=== PATIENT | female | born 1950 | race Caucasian/White ===

== ENCOUNTER → 2016-12-21 | Outpatient (CLI) | payer BC ==
[~2016-12-21] MED LIST: ASPI81TA28 PO; MULT-506 PO; OMEG10007 PO; PLANTAB3 PO
--- NOTE | 2016-12-24 13:47 | MAMMOGRAPHY REPORT ---
BILATERAL DIGITAL SCREENING MAMMOGRAM WITH CAD: 12/21/2016 CLINICAL HISTORY: Routine screening. Patient has no complaints. TECHNIQUE: Current study was also evaluated with a Computer Aided Detection (CAD) system. Bilatera l CC and MLO views were obtained. COMPARISON: Comparison is made to exams dated: 12/21/2015 mammogram, 12/18/2013 mammogram, 12/20/2014 ma mmogram, 12/16/2012 mammogram, 12/11/2011 mammogram, and 12/06/2010 mammogram - [facility] enter. BREAST COMPOSITION: The tissue of both breasts is heterogeneously dense, which may obscure small ma sses. FINDINGS: No suspicious masses, calcifications, or areas of architectural distortion are noted in e ither breast. There has been no significant interval change compared to prior exams. IMPRESSION: ACR BI-RADS CATEGORY 1: NEGATIVE There is no mammographic evidence of malignancy. A 1 year screening mammogram is recommended. The p atient will receive written notification of the results. Approximately 10% of breast cancers are not detected with mammography. A negative mammographic repor t should not delay biopsy if a clinically suggestive mass is present. Stormy Felder M.D. ah/:12/21/2016 12:13:40 Rn Or Lvn: Danielle FIGUEROA(Krystal)(M), [facility] letter sent: Normal 1/2 BI-RADS Code: ACR BI-RADS Category 1: Negative
== END | disposition home or self-care (01) ==
LOC: C.MAMM 09:51
PROVIDERS: ATTEND Obstetrics & Gynecology
DX: Z12.31 Encounter for screening mammogram for malignant neoplasm of breast (principal)

== ENCOUNTER → 2017-12-23 | Outpatient (CLI) | payer BC ==
--- NOTE | 2017-12-23 15:41 | MAMMOGRAPHY REPORT ---
BILATERAL DIGITAL SCREENING MAMMOGRAM TOMOSYNTHESIS WITH CAD: 12/23/2017 CLINICAL HISTORY: Routine screening. Patient has no complaints. TECHNIQUE: Breast tomosynthesis in addition to standard 2D mammography was performed. Current study was also evaluated with a Computer Aided Detection (CAD) system. COMPARISON: Comparison is made to exams dated: 12/21/2016 mammogram, 12/21/2015 mammogram, 12/20/2014 mamm ogram, 12/18/2013 mammogram, 12/16/2012 mammogram, and 12/25/2011 mammogram - [facility] BREAST COMPOSITION: The tissue of both breasts is heterogeneously dense, which may obscure small mas ses. FINDINGS: No suspicious mass, architectural distortion or cluster of microcalcifications is seen. T here are stable intramammary lymph nodes in each upper outer quadrant. IMPRESSION: ACR BI-RADS CATEGORY 1: NEGATIVE There is no mammographic evidence of malignancy. A 1 year screening mammogram is recommended. The pa tient will receive written notification of the results. Approximately 10% of breast cancers are not detected with mammography. A negative mammographic report should not delay biopsy if a clinically suggestive mass is present. Candie James M.D. ay/:12/23/2017 13:14:04 Horse Breaker: Maria Esther Paulino, [facility] letter sent: Normal 1/2 BI-RADS Code: ACR BI-RADS Category 1: Negative
== END | disposition home or self-care (01) ==
LOC: C.MAMM 11:25
PROVIDERS: ATTEND Obstetrics & Gynecology
DX: Z12.31 Encounter for screening mammogram for malignant neoplasm of breast (principal)

== ENCOUNTER → 2018-05-19 | Outpatient (CLI) | payer BC ==
[~2018-05-19] MED LIST changes: +NF34 TOP; -PLANTAB3 PO; +PRMVC PV
[2018-05-19 13:33] LABS: ALBUMIN 3.7 gm/dl (3.4-5.0); ALKALINE PHOSPHATASE 42 U/L (45-117); ALT/SGPT 26 U/L (12-78); AST/SGOT 16 U/L (15-37); BLOOD UREA NITROGEN 25 mg/dl (7-18); CARBON DIOXIDE 28 mmol/L (21-32); CHOLESTEROL 236 mg/dl (0-200); CREATININE 0.76 mg/dl (0.60-1.20); GLUCOSE 105 mg/dl (70-99); LDL CHOLESTEROL CALCULATED 153 mg/dl; SODIUM 138 mmol/L (136-145); TOTAL PROTEIN 6.8 gm/dl (6.4-8.2)
== END | disposition home or self-care (01) ==
LOC: C.LABPVFM 09:43
PROVIDERS: ATTEND Family Medicine
DX: N95.2 Postmenopausal atrophic vaginitis (principal); E78.5 Hyperlipidemia, unspecified

== ENCOUNTER 2019-03-09 23:30 | Observation (INO) ==
[2019-03-10 00:02] LABS: Basophils # (auto) 0.04 K/uL (0-0.2); Basophils % (auto) 0.6 %; Eosinophils # (auto) 0.36 K/uL (0-0.5); Hematocrit (blood only) 41.9 % (37-47); Hemoglobin 15.4 g/dL (12.0-16.0); Immature Granulocytes # (auto) 0.02 K/uL (0.00-0.02); Immature Granulocytes % (auto) 0.3 %; Lymphocytes % (auto) 38.8 %; Mean Corpuscular Hgb Conc 36.8 g/dL (32-36); Mean Corpuscular Volume 87.1 fL (80-100); Mean Platelet Volume 10.7 fL (7.4-10.4); Monocytes # (auto) 0.65 K/uL (0.11-0.59); Neutrophils # (auto) 3.35 K/uL (1.4-6.5); Neutrophils % (auto) 46.3 %; Platelet Count 198 K/uL (130-400); RDW Standard Deviation 41.7 fL (36.4-46.3); Red Blood Count 4.81 M/uL (4.2-5.4); White Blood Count 7.22 K/uL (4.8-10.8)
[2019-03-10 00:22] LABS: D Dimer 770 ug/L FEU (0-500)
[2019-03-10 00:23] LABS: Alanine Aminotransferase 30 U/L (12-78); Albumin Level 3.9 gm/dl (3.4-5.0); Aspartate Aminotransferase 19 U/L (15-37); BUN Creatinine Ratio 24.6 (10-20); Blood Urea Nitrogen 18 mg/dl (7-18); Calcium 10.1 mg/dl (8.5-10.1); Carbon Dioxide 28 mmol/L (21-32); Chloride 109 mmol/L (98-107); Est GFR (African American) 95.8; Est GFR (Non-African American) 82.7; Glucose 107 mg/dl (70-99); Magnesium 2.3 mg/dl (1.8-2.4); Potassium 3.9 mmol/L (3.5-5.1); Sodium 142 mmol/L (136-145)
[2019-03-10] MEDS ORDERED: METOPROLOL TARTRATE 1 MG/ML VIAL IV STA (00:25)
[2019-03-10] MEDS ORDERED: SODIUM CHLORIDE 0.9% 500 ML IV ONE (00:25)
[2019-03-10 00:33] LABS: Albumin Globulin Ratio 1.1 (0.9-2); Alkaline Phosphatase 61 U/L (45-117); Bilirubin,Total 0.4 mg/dl (0.2-1); Globulin 3.6 gm/dl (2.5-4.0); NT Pro B Type Natriuretic Pept 159 pg/ml (0-900); Total Protein 7.5 gm/dl (6.4-8.2); Troponin I < 0.015 ng/ml (0-0.045)
[2019-03-10 00:57] LABS: Appearance Urine Clear (Clear); Bilirubin Urine Negative (Negative); Blood Urine Negative (Negative); Color Urine Yellow; Glucose Urine UA Negative (Negative); Ketones Urine Negative (Negative); Leukocyte Esterase Urine Negative (Negative); Nitrite Urine Negative (Negative); Protein Urine Negative (Negative); Specific Gravity Urine 1.011 (1.000-1.030); Urobilinogen Urine Negative (Negative)
[2019-03-10] MEDS ORDERED: OPTIRAY 320 125ml IV PRN (01:13)
[2019-03-10 01:38] LABS: Lyme Ab IgG w/WB Rflx Negative (Negative); Lyme Ab IgM w/WB Rflx Equivocal (Negative)
--- NOTE | 2019-03-10 02:27 | History & Physical Report ---
Date of Service March 10, 2019 Assessment & Plan (1) New onset a-fib: 68 y/o F who denies active medical issues - presenting with acute onset of palpitations accompanied by chest pressure. The pt was in AF on arrival to the ER. She denies a prior history of AF although she does state she had a similar episodes of symptomatic palpitations prior to stopping caffeine intake several years ago. She also states that the prior day she had a glass of wine and had not had any alcohol for a few years prior. Initial labs were unremarkable aside from an elevated D dimer. 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 Clinically and per history, she does not have pneumonia. The pt's initial HR was approximately 105. After a single dose of Metoprolol, her HR came down into the 70s, although she remained in AF. She was offered and subsequently declined electrical cardioversion. 1) New AF - Placed on Metoprolol and Eliquis. Pending cardiology consult and echo. TSH is WNL. As she was having CP with the rapid rate, she may merit a stress test, although not necessarily as an inpatient. She may reconsider cardioversion if she does not spontaneously return to a sinus rhythm in short order. 2) Abnormal CT chest - we will not treat for PNM as she does not have related symptoms. She should follow up with her primary MD for the described aneurysm. Full code, Eliquis prophylaxis Total time for this admit including review of labs, meds, imaging, records - discussion with pt and ER attending - 38 min Total time for this admit inclu Present on Admission?: Yes History of Present Illness Chief Complaint: papitations Primary Care Provider: Paulina Ceballos MD 68 y/o F who denies active medical issues - presenting with acute onset of palpitations accompanied by chest pressure. The pt was in AF on arrival to the ER. She denies a prior history of AF although she does state she had a similar episodes of symptomatic palpitations prior to stopping caffeine intake several years ago. She also states that the prior day she had a glass of wine and had not had any alcohol for a few years prior. Initial labs were unremarkable aside from an elevated D dimer. 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 Clinically and per history, she does not have pneumonia. The pt's initial HR was approximately 105. After a single dose of Metoprolol, her HR came down into the 70s, although she remained in AF. She was offered and subsequently declined electrical cardioversion. PMH: 1) Borderline hyperlipidemia - not currently treated 2) She was taking thyroid medications for a while in her 20s Surgical: 1) Oopherectomy 2) Appendectomy as a child Social: No history of smoking, does not normally drink alcohol Family: Mother age 92 following a CVA Father owing to complications of Tessy's granulomatosis Allergies Allergy/AdvReac Type Severity Reaction Status Date / Time amoxicillin AdvReac Intermediate GI SYMPTOMS Verified 04/03/18 08:22 clavulanic acid AdvReac Intermediate GI SYMPTOMS Verified 04/03/18 08:22 Home Medications Home Medications Medication Instructions Recorded Confirmed Type calcium phosphate-vitamin D3 1 tab PO DAILY 03/10/19 03/10/19 History [Citracal + D3 (calcium phos)] multivitamin 1 tab PO DAILY 03/10/19 03/10/19 History omega 8-hlc-blp-fish oil [Fish Oil] 1 cap PO DAILY 03/10/19 03/10/19 History plant stanol mihaela [Cholest Off] 1 mg PO DAILY 03/10/19 03/10/19 History Past Med/Surg History Medical History High cholesterol Thyroid disorder Family History Other A-fib Social History Feels Safe at Home: Yes Smoking Status: Never smoker Review of Systems Review of Systems: Gen: Denies fevers, night sweats, rigors, fatigue, malaise, weight loss/gain ENT: Denies congestion, throat pain, hearing loss Eyes: Denies acute visual changes CV: + CP and palpitations as above Pulmonary: Denies SOB accompanying palpitations GI: Denies N/V, diarrhea, constipation Neuro: Denies acute or unilateral weakness, acute gait impairment, headache or acute visual changes Musculoskeletal: Denies joint pain, inflammation Endocrine: Denies polydipsia, polyuria Skin: Denies acute rashe or ulcers Physical Exam Physical Exam: General: AAO x 3, no distress ENT: No erythema or exudates, no thrush Eyes: PEBBLES, EOMI Head and neck: Normocephalic, atraumatic, No JVD, neck is supple. Chest/heart: Nontender, S1,2, irreg, no murmurs, no gallops Lungs: CTAB, no wheezing or crackles Abdomen: Nontender, nondistended, BS+ Neuro: AAO x 3, speech is clear, no unilateral weakness or loss of sensation, coordination intact Musculoskeletal: No joint inflammation, muscle tenderness, FROM Skin: No acute rashes or ulcers Extremities: No clubbing, cyanosis, edema Results & Data Vital Signs (Past 12 Hours) Vital Signs Temp Pulse Resp BP Pulse Ox 03/10/19 00:41 82 20 126/78 03/10/19 00:39 81 20 132/84 03/10/19 00:33 87 148/94 H 03/10/19 00:30 83 27 H 148/94 H 03/10/19 00:20 86 22 03/10/19 00:10 93 H 31 H 03/10/19 00:01 84 19 126/85 03/10/19 00:00 86 16 03/09/19 23:51 91 H 22 03/09/19 23:50 85 22 137/81 03/09/19 23:48 97 03/09/19 23:46 98 H 24 03/09/19 23:40 106 H 18 173/94 H 03/09/19 23:35 97.9 F 106 H 18 173/94 H 97
[2019-03-10] MEDS ORDERED: ACETAMINOPHEN 325 MG TAB PO PRN (03:41)
--- NOTE | 2019-03-10 04:19 | Emergency Department Note ---
Entered by Yadira Freitas acting as a scribe for Nery Bella DO History of Present Illness General Chief complaint: Tachycardia Stated complaint: HEART RACING Time Seen by Provider: 03/09/19 23:36 Source: patient History of Present Illness Onset (ago): hour(s) 1 Location: chest (Tachycardia) Severity: similar to prior episodes Pain Consistency: + other (Sudden) Quality: + other (Tachycardia) Associated symptoms: + other (Tachycardia); no headaches Treatments prior to arrival: other (Aspirin) The patient is a 68 year old female presenting to the Emergency Department complaining of sudden tachycardia starting 1 hour ago. The patient reports that she was lying in bed and her heart began to race. She states that she saw on her fit bit that her pulse at its highest was 96 bpm and that it is usually 60 bpm. She notes that she has experienced these symptoms before but not for a long time. She adds when she experienced these symptoms before it was because she was drinking too much caffeine and since then has stopped. The patient reports that she is normally active and exercises every day. She states that she took 2 Aspirin SENIOR WRITER for her symptoms. She denies abnormal bowel movements, headaches, lower extremity swelling, recent caffeine consumption, recent alcohol consumption, recent travel, recent infection, recent change in medications and any pertinent cardiac history. Pt does relay she recently finished doxycycline for treatment of Lyme's disease. Home Medications Home Medications Medication Instructions Recorded Confirmed Type calcium phosphate-vitamin D3 1 tab PO DAILY 03/10/19 03/10/19 History [Citracal + D3 (calcium phos)] multivitamin 1 tab PO DAILY 03/10/19 03/10/19 History omega 5-opr-kud-fish oil [Fish Oil] 1 cap PO DAILY 03/10/19 03/10/19 History plant stanol mihaela [Cholest Off] 1 mg PO DAILY 03/10/19 03/10/19 History Allergies Allergy/AdvReac Type Severity Reaction Status Date / Time amoxicillin AdvReac Intermediate GI SYMPTOMS Verified 04/03/18 08:22 clavulanic acid AdvReac Intermediate GI SYMPTOMS Verified 04/03/18 08:22 Past Med/Surg History Medical History High cholesterol Thyroid disorder Family History Other A-fib Social History Preferred Language: Portuguese Current Living Situation: Spouse Other Information That Helps Us Care for You: No Feels Safe at Home: Yes Safety Concerns: Feels Safe At This Time Smoking Status: Never smoker Hx Alcohol Use: Yes Alcohol type: wine Hx Substance Use: No Review of Systems See HPI for pertinent positives & negatives. and A total of 10 systems reviewed and were otherwise negative Physical Exam Vital Signs Vital Signs - 24 hr 03/09/19 23:35 03/09/19 23:40 03/09/19 23:46 Temperature 36.6 C Temperature Source Oral Sepsis Recent Fever Within 48 Hours No Sepsis Action Taken by Nursing No Action Required Pulse Rate 106 H 106 H 98 H Respiratory Rate 18 18 24 Respiratory Depth Normal Blood Pressure 173/94 H 173/94 H Blood Pressure Mean 120 120 Blood Pressure Position Lying Pulse Oximetry 97 Oxygen Delivery Method Room Air 03/09/19 23:48 03/09/19 23:50 03/09/19 23:51 Temperature Temperature Source Sepsis Recent Fever Within 48 Hours Sepsis Action Taken by Nursing Pulse Rate 85 91 H Respiratory Rate 22 22 Respiratory Depth Blood Pressure 137/81 Blood Pressure Mean 99 Blood Pressure Position Pulse Oximetry 97 Oxygen Delivery Method Room Air 03/10/19 00:00 03/10/19 00:01 03/10/19 00:10 Temperature Temperature Source Sepsis Recent Fever Within 48 Hours Sepsis Action Taken by Nursing Pulse Rate 86 84 93 H Respiratory Rate 16 19 31 H Respiratory Depth Blood Pressure 126/85 Blood Pressure Mean 98 Blood Pressure Position Pulse Oximetry Oxygen Delivery Method 03/10/19 00:20 03/10/19 00:30 03/10/19 00:33 Temperature Temperature Source Sepsis Recent Fever Within 48 Hours Sepsis Action Taken by Nursing Pulse Rate 86 83 87 Respiratory Rate 22 27 H Respiratory Depth Blood Pressure 148/94 H 148/94 H Blood Pressure Mean 112 Blood Pressure Position Pulse Oximetry Oxygen Delivery Method 03/10/19 00:39 03/10/19 00:41 03/10/19 00:47 Temperature Temperature Source Sepsis Recent Fever Within 48 Hours Sepsis Action Taken by Nursing Pulse Rate 81 82 90 Respiratory Rate 20 20 21 Respiratory Depth Blood Pressure 132/84 126/78 131/87 Blood Pressure Mean 100 94 101 Blood Pressure Position Pulse Oximetry Oxygen Delivery Method 03/10/19 01:02 03/10/19 01:03 03/10/19 01:10 Temperature Temperature Source Sepsis Recent Fever Within 48 Hours Sepsis Action Taken by Nursing Pulse Rate 86 82 79 Respiratory Rate 25 H 24 20 Respiratory Depth Blood Pressure 146/108 H Blood Pressure Mean 120 Blood Pressure Position Pulse Oximetry Oxygen Delivery Method 03/10/19 01:20 03/10/19 01:30 03/10/19 01:31 Temperature Temperature Source Sepsis Recent Fever Within 48 Hours Sepsis Action Taken by Nursing Pulse Rate 77 85 92 H Respiratory Rate 18 21 20 Respiratory Depth Blood Pressure 127/88 Blood Pressure Mean 101 Blood Pressure Position Pulse Oximetry Oxygen Delivery Method 03/10/19 01:40 03/10/19 01:50 03/10/19 02:00 Temperature Temperature Source Sepsis Recent Fever Within 48 Hours Sepsis Action Taken by Nursing Pulse Rate 82 79 75 Respiratory Rate 19 23 20 Respiratory Depth Blood Pressure 132/88 Blood Pressure Mean 102 Blood Pressure Position Pulse Oximetry Oxygen Delivery Method 03/10/19 02:10 03/10/19 02:20 Temperature Temperature Source Sepsis Recent Fever Within 48 Hours Sepsis Action Taken by Nursing Pulse Rate 77 82 Respiratory Rate 38 H 23 Respiratory Depth Blood Pressure Blood Pressure Mean Blood Pressure Position Pulse Oximetry Oxygen Delivery Method GENERAL: alert, well appearing, well nourished, no distress, non-toxic EYE EXAM: normal conjunctiva, PERRL and EOM's grossly intact OROPHARYNX: no exudate, no erythema, lips, buccal mucosa, and tongue normal and mucous membranes are moist NECK: supple, no nuchal rigidity, no adenopathy, non-tender LUNGS: Clear to auscultation. Normal chest wall mechanics, no w/r/r HEART: Irregular heart. no murmurs, S1 normal and S2 normal ABDOMEN: abdomen soft, non-tender, normo-active bowel sounds, no masses, no rebound or guarding. BACK: Back is symmetrical on inspection and there is no deformity, no midline tenderness, no CVA tenderness. SKIN: no rashes and no bruising UPPER EXTREMITIES: upper extremities are grossly normal. FROM, nml pulses b/l. LOWER EXTREMITIES: No pitting edema. FROM, nml pulses b/l. NEURO EXAM: Normal sensorium, cranial nerves II-XII grossly intact, normal speech, no gross weakness of arms, no gross weakness of legs. Course 2338: The patient was evaluated in room A10, and a complete history and physical examination were performed. 0146: I reevaluated the patient at this time who reports that she still feels like her heart is skipping beats and palpating. I discussed the patient�s lab and imaging results with her. 0214: I discussed the patient�s case with Dr. Pedrito BLACK hospitalist. He will evaluate the patient for further management. 0219: I updated the patient about her disposition at this time. Consultations Consultation #1: I discussed the patient�s case with Dr. Pedrito BLACK hospitalist. He will evaluate the patient for further management. Time: 02:14 Administered Medications Discontinued Medications Sodium Chloride (Nss) 500 mls @ 999 mls/hr IV .Q31M ONE Stop: 03/10/19 00:55 Last Infusion: 03/10/19 01:04 Dose: 0 mls/hr Documented by: [id number] Admin: 03/10/19 00:33 Dose: 999 mls/hr Documented by: [id number] Ioversol (Optiray 320 125ml) 125 ml IV ONCE PRN PRN Reason: Interaction Checking Stop: 03/14/19 01:12 Last Admin: 03/10/19 01:13 Dose: 91 ml Documented by: [id number] Metoprolol Tartrate (Lopressor) 5 mg IV NOW STA Stop: 03/10/19 00:26 Last Admin: 03/10/19 00:33 Dose: 5 mg Documented by: [id number] Medical Decision Making Differential Diagnosis Differential diagnosis includes etiologies such as premature contractions, electrolyte abnormality, cardiac dysrhythmia, thyroid dysfunction, pulmonary embolism, infection, gastrointestinal, as well as others were entertained. Medical Records Attestation: I reviewed the patient's medical records. Home Medications Current Medication List: was personally reviewed by me Laboratory Data Attestation: I reviewed the patient's lab results. Result diagrams: 03/09/19 23:48 03/09/19 23:48 Lab Results 03/09/19 03/09/19 03/09/19 Range/Units 23:48 23:48 23:48 WBC 7.22 (4.8-10.8) K/uL RBC 4.81 (4.2-5.4) M/uL Hgb 15.4 (12.0-16.0) g/dL Hct 41.9 (37-47) % MCV 87.1 (80-100) fL MCH 32.0 (25-34) pg MCHC 36.8 H (32-36) g/dL RDW Std Deviation 41.7 (36.4-46.3) fL RDW Coeff of Kerri 13.0 (11.5-14.5) % Plt Count 198 (130-400) K/uL MPV 10.7 H (7.4-10.4) fL Immature Gran % (Auto) 0.3 % Neut % (Auto) 46.3 % Lymph % (Auto) 38.8 % Stephenson % (Auto) 9.0 % Eos % (Auto) 5.0 % Baso % (Auto) 0.6 % Immature Gran # (Auto) 0.02 (0.00-0.02) K/uL Neut # (Auto) 3.35 (1.4-6.5) K/uL Lymph # (Auto) 2.80 (1.2-3.4) K/uL Stephenson # (Auto) 0.65 H (0.11-0.59) K/uL Eos # (Auto) 0.36 (0-0.5) K/uL Baso # (Auto) 0.04 (0-0.2) K/uL D-Dimer 770 H* (0-500) ug/L FEU Sodium 142 (136-145) mmol/L Potassium 3.9 (3.5-5.1) mmol/L Chloride 109 H (98-107) mmol/L Carbon Dioxide 28 (21-32) mmol/L Anion Gap 6.0 (3-11) BUN 18 (7-18) mg/dl Creatinine 0.74 (0.6-1.2) mg/dl Est Cr Clr Drug Dosing 62.0 ml/min Est GFR ( Amer) 95.8 Est GFR (Non-Af Amer) 82.7 BUN/Creatinine Ratio 24.6 H (10-20) Glucose 107 H (70-99) mg/dl Calcium 10.1 (8.5-10.1) mg/dl Magnesium 2.3 (1.8-2.4) mg/dl Total Bilirubin 0.4 (0.2-1) mg/dl AST 19 (15-37) U/L ALT 30 (12-78) U/L Alkaline Phosphatase 61 (45-117) U/L Troponin I < 0.015 (0-0.045) ng/ml NT-Pro-B Natriuret Pep 159 (0-900) pg/ml Total Protein 7.5 (6.4-8.2) gm/dl Albumin 3.9 (3.4-5.0) gm/dl Globulin 3.6 (2.5-4.0) gm/dl Albumin/Globulin Ratio 1.1 (0.9-2) TSH 3.470 (0.300-4.500) uIu/ml Urine Color Urine Appearance (Clear) Urine pH (4.5-7.5) Ur Specific Harbinger (1.000-1.030) Urine Protein (Negative) Urine Glucose (UA) (Negative) Urine Ketones (Negative) Urine Blood (Negative) Urine Nitrite (Negative) Urine Bilirubin (Negative) Urine Urobilinogen (Negative) Ur Leukocyte Esterase (Negative) Lyme Disease IgG Ab (Negative) Lyme Disease IgM Ab (Negative) 03/09/19 03/10/19 Range/Units 23:48 00:43 WBC (4.8-10.8) K/uL RBC (4.2-5.4) M/uL Hgb (12.0-16.0) g/dL Hct (37-47) % MCV (80-100) fL MCH (25-34) pg MCHC (32-36) g/dL RDW Std Deviation (36.4-46.3) fL RDW Coeff of Kerri (11.5-14.5) % Plt Count (130-400) K/uL MPV (7.4-10.4) fL Immature Gran % (Auto) % Neut % (Auto) % Lymph % (Auto) % Stephenson % (Auto) % Eos % (Auto) % Baso % (Auto) % Immature Gran # (Auto) (0.00-0.02) K/uL Neut # (Auto) (1.4-6.5) K/uL Lymph # (Auto) (1.2-3.4) K/uL Stephenson # (Auto) (0.11-0.59) K/uL Eos # (Auto) (0-0.5) K/uL Baso # (Auto) (0-0.2) K/uL D-Dimer (0-500) ug/L FEU Sodium (136-145) mmol/L Potassium (3.5-5.1) mmol/L Chloride (98-107) mmol/L Carbon Dioxide (21-32) mmol/L Anion Gap (3-11) BUN (7-18) mg/dl Creatinine (0.6-1.2) mg/dl Est Cr Clr Drug Dosing ml/min Est GFR ( Amer) Est GFR (Non-Af Amer) BUN/Creatinine Ratio (10-20) Glucose (70-99) mg/dl Calcium (8.5-10.1) mg/dl Magnesium (1.8-2.4) mg/dl Total Bilirubin (0.2-1) mg/dl AST (15-37) U/L ALT (12-78) U/L Alkaline Phosphatase (45-117) U/L Troponin I (0-0.045) ng/ml NT-Pro-B Natriuret Pep (0-900) pg/ml Total Protein (6.4-8.2) gm/dl Albumin (3.4-5.0) gm/dl Globulin (2.5-4.0) gm/dl Albumin/Globulin Ratio (0.9-2) TSH (0.300-4.500) uIu/ml Urine Color Yellow Urine Appearance Clear (Clear) Urine pH 8.0 H (4.5-7.5) Ur Specific Harbinger 1.011 (1.000-1.030) Urine Protein Negative (Negative) Urine Glucose (UA) Negative (Negative) Urine Ketones Negative (Negative) Urine Blood Negative (Negative) Urine Nitrite Negative (Negative) Urine Bilirubin Negative (Negative) Urine Urobilinogen Negative (Negative) Ur Leukocyte Esterase Negative (Negative) Lyme Disease IgG Ab Negative (Negative) Lyme Disease IgM Ab Equivocal A (Negative) Imaging Data Attestation: I personally reviewed and interpreted this imaging study as follows: My Impression: XR Chest 1V Portable Stat: No cardiomegaly. No effusions. No focal consolidation. No wide mediastinum. No pulmonary edema. Radiologist's Impression: Radiology results as stated below per my review and the radiologist's interpretation: CTA CHEST: No pulmonary embolus. Aneurysmal ascending aorta, about 4 cm. No effusion or confluent consolidation. Minimal nodular infiltrate in the left lung base. Some air trapping in the lungs. Radiologist: Paul Sommers MD. Study ready at 0121 and initial results transmitted at 0137. ECG Data Attestation: I personally reviewed and interpreted this ECG as follows: Indication: tachycardia Rate (beats per minute): 92 Rhythm: atrial fibrillation Findings: + other (Normal axis. Normal QRS and QTC. Baseline artifact noted. ) and + ST depression (Slight ST depression in lead 2, 3, aVF and V6. ); no ST elevation Comparison ECG Date: from (08/04/11) Change: the following changes noted (A-fib new to prior EKG. No other significant changes in morphology. ) Blood Pressure Blood Pressure Findings: Normal blood pressure Blood Pressure Disposition: further management by hospitalist MDM Narrative Patient here well-appearing in no prior history of palpitations or atrial fibrillation. No evidence of thyroid dysfunction or electrolyte abnormality. Patient denies any recent use of caffeine or alcohol. Patient is concerned as her sister does have a history of atrial fibrillation also. Patient's heart rate not significantly elevated, however was in the lower 100s. Patient's heart rate improved dramatically with 1 dose of IV metoprolol. Given known onset, I did discuss with the patient electrical cardioversion instead of medications. I do have some concern given patient's age and need for an echo to rule out other valve dysfunction. I did make patient aware of all CT findings including nodular abnormality and aneurysmal dilatation of her aorta. I did discuss close follow-up for both of those. Patient continued to experience a sensation of palpitations even after improved heart rate. 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 fib, I discussed case with the hospitalist. I deferred anticoagulation decision to hospitalist given recent onset and many options available as these could be investigated by pillowcase cleaner for insurance coverage prior to DC. Patient be evaluated by the hospitalist for additional inpatient treatment. Patient made aware of all results and was in agreement with plan. Impression & Plan New onset a-fib, Palpitations Discharge Plan Visit Data *Final* Discharge Date/Time: 03/10/19 02:43 Chief Complaint: Tachycardia Stated Complaint: HEART RACING ED Provider: Nery Bella Discharge Problem: New onset a-fib, Palpitations Patient Disposition: Admitted As Inpatient Discharge Instructions Interventions: ED Discharge Assessment Last Done: 03/10/19 02:43 The scribe's documentation has been prepared under my direction and personally reviewed by me in its entirety. I confirm that the note above accurately reflects all work, treatment, procedures, and medical decision making performed by me.
[2019-03-10] MEDS ORDERED: APIXABAN 5 MG TABLET PO SCH (05:00)
--- NOTE | 2019-03-10 06:29 | XRay Report ---
XR chest 1V portable CLINICAL HISTORY: palpitations COMPARISON STUDY: 02/02/2014 FINDINGS: The cardiac and mediastinal contours are normal. There is no evidence of focal pulmonary co nsolidation. There is no evidence of failure. No pleural effusions are visualized.[Mild emphysema is suspected. IMPRESSION: No active disease in the chest. Electronically signed by: Renan Agudelo M.D. 03/10/2019 6:28 AM
--- NOTE | 2019-03-10 06:31 | CT Scan Report ---
CT angio chest PE protocol CT DOSE: 239.26 mGy.cm HISTORY: Chest pain. Dyspnea. PE TECHNIQUE: Multiaxial CT images of the chest were performed following the intravenous administration of contrast to evaluate the pulmonary arteries. Maximal intensity projection images were also obtaine d. A dose lowering technique was utilized adhering to the principles of ALARA. COMPARISON STUDY: 06/19/2013 FINDINGS: Pulmonary vasculature enhances appropriately. There are no filling defects. Mild prominence of the a sending thoracic aorta at 3.8 x 3.9 cm. This is similar compared to the prio r study. Lungs are currently considered clear. There are no focal infiltrative change. Several small scattered micronodules are unchanged in the prior study. IMPRESSION: 1. No evidence for pulmonary embolus. 2. Lungs are considered clear. 3. Stable prominence of the a sending thoracic aorta at 3.8 x 3.9 cm. The above report was generated using voice recognition software. It may contain grammatical, syntax or spelling errors. Electronically signed by: Solitario Salvador M.D. 03/10/2019 6:30 AM
[2019-03-10] MEDS ORDERED: METOPROLOL TARTRATE 25 MG TAB PO SCH (09:00)
--- NOTE | 2019-03-10 10:37 | Cardiology Consultation ---
Date of Consultation March 10, 2019 Assessment & Plan (1) New onset a-fib: Patient presented with atrial fibrillation and a controlled ventricular rate. She had some symptoms of palpitations. She also had some symptoms of chest discomfort which were likely related to the arrhythmia and not ischemia. Her primary risk factor for atrial fibrillation is her age. An echocardiogram is pending but she is not appear to have significant valvular disease based on her examination. Thyroid study was normal. Lyme titers are pending, but not a likely etiology for her arrhythmia. I think she will continue to have episodes of atrial fibrillation the frequency and duration of which is yet unknown. Primary concern is her stroke risk. Her chads Vasc score appears to be 2. This is based on her gender and age. I would suggest ongoing systemic anticoagulation. She was started on Eliquis with seems to be a reasonable agent. Xarelto or Pradaxa would be good alternatives as well. Do not believe she requires any specific rate control. Her resting heart rate is relatively low. Her heart rates while in atrial fibrillation seems well controlled. Do not think she requires metoprolol at the time of discharge. Her overall medical regimen may need to be modified pending on the recurrent nature and symptoms associated with additional episodes of atrial fibrillation. (2) Aortic root dilation: She had borderline dilation of the aortic root on her CT scan. This can be followed over time. Overall blood pressures appear well controlled. I do not think she requires a beta-faina based on this incidental finding. She can have a re-evaluation in [address] scan or echocardiography. (3) Chest pain: She did have some sense of chest pressure associated with her arrhythmia. She described this in variable terms on occasion it was a sharp pain. The symptoms appear to last well over an hour without any elevation in her cardiac biomarkers. Do not think this represented ischemia. There is no evidence of ischemia on her presenting EKG. She is otherwise healthy individual was not report symptoms of chest pain with exertion. Do not believe she requires any risk stratification based on this symptom. I would recommend standard cardiac risk factor modification according to published guidelines. History of Present Illness Reason for Consultation: Atrial fibrillation Requesting Physician: Greyson Attending Physician: Leonel Rubi History of Present Illness Patient is a 68-year-old woman without a known cardiac history who experienced the onset of palpitations last evening. Patient states that when she went to bed last night she began to notice palpitations. This also involved a sense of chest pressure in the left upper precordial area. She did not report other symptoms such as significant breathing trouble or dizziness. She did not feel presyncopal. She does wear a heart rate monitor and noticed that her heart rate was in the 80s to 90s. This is unusual for her. Generally speaking her heart rate is in the 60s at rest and perhaps 80 with exercise. Due to the persistent nature of her symptoms she presented to the hospital where she was discovered to have atrial fibrillation. Patient was administered some metoprolol in the emergency room and an anticoagulant. She was observed on telemetry overnight and spontaneously converted around 4:00 a.m. this morning. Patient states that quite remotely she had some symptoms of palpitations but nothing recent. She is an otherwise active individual who was accustomed to taking care of horses and walking regularly. She has not report any limitations associated with activity. She generally does not have symptoms of chest discomfort or limiting dyspnea. She has some sleep disturbance, but no notable orthopnea. She does not have paroxysmal nocturnal dyspnea. She has not noticed any swelling in her lower extremities. She states she has had some seasonal allergies recently involving a cough and some nasal congestion. However, she has not had subjective fevers or chills. Currently she is feeling well. She is not currently aware of any palpitations. Her chest pressure that she experienced during palpitations has resolved. Allergies Allergy/AdvReac Type Severity Reaction Status Date / Time amoxicillin AdvReac Intermediate GI SYMPTOMS Verified 04/03/18 08:22 clavulanic acid AdvReac Intermediate GI SYMPTOMS Verified 04/03/18 08:22 Home Medications Home Medications Medication Instructions Recorded Confirmed Type calcium phosphate-vitamin D3 1 tab PO DAILY 03/10/19 03/10/19 History [Citracal + D3 (calcium phos)] multivitamin 1 tab PO DAILY 03/10/19 03/10/19 History omega 8-cmw-oxq-fish oil [Fish Oil] 1 cap PO DAILY 03/10/19 03/10/19 History plant stanol mihaela [Cholest Off] 1 mg PO DAILY 03/10/19 03/10/19 History Patient History Medical History High cholesterol Thyroid disorder Family History Other A-fib Social History Preferred Language: Romansh Current Living Situation: Spouse Other Information That Helps Us Care for You: No Feels Safe at Home: Yes Safety Concerns: Feels Safe At This Time Smoking Status: Never smoker Hx Alcohol Use: Yes Alcohol type: wine Hx Substance Use: No Review of Systems Review of Systems: All systems reviewed & are unremarkable except as noted in HPI & below Physical Exam Physical Exam: She is alert and oriented x3. Mood affect appear normal. She answered all questions appropriately. HEENT: Sclerae are anicteric. Pupils are equal and reactive to light and accommodation. Extraocular movements were intact. Neuro: Cranial nerves intact Neck: Examination of the submandibular region did not reveal any significant lymphadenopathy. Carotids are palpable bilaterally and free of bruits on auscultation. There was no evidence of jugular venous distention. The thyroid was not enlarged. Lungs: Lungs are clear to auscultation bilaterally. There are no rales wheezes or rhonchi. She has normal respiratory effort without use of accessory muscles. There is normal pulmonary excursion. Cardiac: The rhythm was regular. S1 and S2 were normal. There are no murmurs on examination. The PMI was not markedly displaced on palpation. Abdomen: The abdomen was soft and nontender. Extremities: Patient has bilateral radial pulses that are equal in intensity. There is no evidence cyanosis or clubbing. There was no evidence of significant peripheral edema bilaterally. Skin: There are no rashes noted on examination today. Results & Data Vital Signs (Past 12 Hours) Vital Signs Temp Pulse Pulse Resp BP BP Pulse Ox 03/10/19 07:04 37.0 C 17 129/65 97 03/10/19 06:32 68 03/10/19 03:42 36.4 C L 65 18 130/74 97 03/10/19 03:34 36.8 C 68 16 129/73 99 03/10/19 02:40 74 19 03/10/19 02:30 78 22 133/84 03/10/19 02:20 82 23 03/10/19 02:10 77 38 H 03/10/19 02:00 75 20 132/88 03/10/19 01:50 79 23 03/10/19 01:40 82 19 03/10/19 01:31 92 H 20 127/88 03/10/19 01:30 85 21 03/10/19 01:20 77 18 03/10/19 01:10 79 20 03/10/19 01:03 82 24 03/10/19 01:02 86 25 H 146/108 H 03/10/19 00:47 90 21 131/87 03/10/19 00:41 82 20 126/78 03/10/19 00:39 81 20 132/84 03/10/19 00:33 87 148/94 H 03/10/19 00:30 83 27 H 148/94 H 03/10/19 00:20 86 22 03/10/19 00:10 93 H 31 H 03/10/19 00:01 84 19 126/85 03/10/19 00:00 86 16 03/09/19 23:51 91 H 22 03/09/19 23:50 85 22 137/81 03/09/19 23:48 97 03/09/19 23:46 98 H 24 03/09/19 23:40 106 H 18 173/94 H 03/09/19 23:35 36.6 C 106 H 18 173/94 H 97 Laboratory Results Abnormal Lab Results 03/09/19 03/09/19 03/09/19 23:48 23:48 23:48 WBC 7.22 RBC 4.81 Hgb 15.4 Hct 41.9 MCV 87.1 MCH 32.0 MCHC 36.8 H RDW Std Deviation 41.7 RDW Coeff of Kerri 13.0 Plt Count 198 MPV 10.7 H Immature Gran % (Auto) 0.3 Neut % (Auto) 46.3 Lymph % (Auto) 38.8 Harney % (Auto) 9.0 Eos % (Auto) 5.0 Baso % (Auto) 0.6 Immature Gran # (Auto) 0.02 Neut # (Auto) 3.35 Lymph # (Auto) 2.80 Harney # (Auto) 0.65 H Eos # (Auto) 0.36 Baso # (Auto) 0.04 D-Dimer 770 H* Sodium 142 Potassium 3.9 Chloride 109 H Carbon Dioxide 28 Anion Gap 6.0 BUN 18 Creatinine 0.74 Est Cr Clr Drug Dosing 62.0 Est GFR ( Amer) 95.8 Est GFR (Non-Af Amer) 82.7 BUN/Creatinine Ratio 24.6 H Glucose 107 H Calcium 10.1 Magnesium 2.3 Total Bilirubin 0.4 AST 19 ALT 30 Alkaline Phosphatase 61 Troponin I < 0.015 NT-Pro-B Natriuret Pep 159 Total Protein 7.5 Albumin 3.9 Globulin 3.6 Albumin/Globulin Ratio 1.1 TSH 3.470 Urine Color Urine Appearance Urine pH Ur Specific Conway Urine Protein Urine Glucose (UA) Urine Ketones Urine Blood Urine Nitrite Urine Bilirubin Urine Urobilinogen Ur Leukocyte Esterase Lyme Disease IgG Ab Lyme Disease IgM Ab 03/09/19 03/10/19 23:48 00:43 WBC RBC Hgb Hct MCV MCH MCHC RDW Std Deviation RDW Coeff of Kerri Plt Count MPV Immature Gran % (Auto) Neut % (Auto) Lymph % (Auto) Harney % (Auto) Eos % (Auto) Baso % (Auto) Immature Gran # (Auto) Neut # (Auto) Lymph # (Auto) Harney # (Auto) Eos # (Auto) Baso # (Auto) D-Dimer Sodium Potassium Chloride Carbon Dioxide Anion Gap BUN Creatinine Est Cr Clr Drug Dosing Est GFR ( Amer) Est GFR (Non-Af Amer) BUN/Creatinine Ratio Glucose Calcium Magnesium Total Bilirubin AST ALT Alkaline Phosphatase Troponin I NT-Pro-B Natriuret Pep Total Protein Albumin Globulin Albumin/Globulin Ratio TSH Urine Color Yellow Urine Appearance Clear Urine pH 8.0 H Ur Specific Conway 1.011 Urine Protein Negative Urine Glucose (UA) Negative Urine Ketones Negative Urine Blood Negative Urine Nitrite Negative Urine Bilirubin Negative Urine Urobilinogen Negative Ur Leukocyte Esterase Negative Lyme Disease IgG Ab Negative Lyme Disease IgM Ab Equivocal A Diagnostic Findings Chest x-ray obtained at the time admission did not reveal any significant cardiopulmonary abnormalities Chest CT PE protocol did not reveal any evidence of pulmonary embolus. She did have a mild dilation of her aortic root. She also had evidence of lung consolidation. ECG Additional Comments: Atrial fibrillation with controlled ventricular response
[2019-03-13 01:52] LABS: 18KDIGG Band NONREACTIVE (NONREACTIVE); 23KDIGG Band NONREACTIVE (NONREACTIVE); 23KDIGM Band REACTIVE (NONREACTIVE); 28KDIGG Band NONREACTIVE (NONREACTIVE); 30KDIGG Band NONREACTIVE (NONREACTIVE); 39KDIGG Band NONREACTIVE (NONREACTIVE); 39KDIGM Band NONREACTIVE (NONREACTIVE); 41KDIGG Band NONREACTIVE (NONREACTIVE); 41KDIGM Band NONREACTIVE (NONREACTIVE); 45KDIGG Band NONREACTIVE (NONREACTIVE); 58KDIGG Band NONREACTIVE (NONREACTIVE); 66KDIGG Band NONREACTIVE (NONREACTIVE); 93KDIGG Band NONREACTIVE (NONREACTIVE); Lyme Antibodies, WB IgG NEGATIVE (NEGATIVE); Lyme Antibodies, WB IgM NEGATIVE (NEGATIVE)
--- NOTE | 2019-03-18 22:20 | Discharge Summary ---
Date of Service March 10, 2019 Admission HPI Per Admitting Provider 68 y/o F who denies active medical issues - presenting with acute onset of palpitations accompanied by chest pressure. The pt was in AF on arrival to the ER. She denies a prior history of AF although she does state she had a similar episodes of symptomatic palpitations prior to stopping caffeine intake several years ago. She also states that the prior day she had a glass of wine and had not had any alcohol for a few years prior. Initial labs were unremarkable aside from an elevated D dimer. 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 Clinically and per history, she does not have pneumonia. The pt's initial HR was approximately 105. After a single dose of Metoprolol, her HR came down into the 70s, although she remained in AF. She was offered and subsequently declined electrical cardioversion. PMH: 1) Borderline hyperlipidemia - not currently treated 2) She was taking thyroid medications for a while in her 20s Surgical: 1) Oopherectomy 2) Appendectomy as a child Social: No history of smoking, does not normally drink alcohol Family: Mother age 92 following a CVA Father owing to complications of Tessy's granulomatosis Principal Diagnosis new onset atrial fibrillation Discharge Exam General: AAO x 3, no distress ENT: No erythema or exudates, no thrush Eyes: PEBBLES, EOMI Head and neck: Normocephalic, atraumatic, No JVD, neck is supple. Chest/heart: Nontender, S1,2, reg, no murmurs, no gallops Lungs: CTAB, no wheezing or crackles Abdomen: Nontender, nondistended, BS+ Neuro: AAO x 3, speech is clear, no unilateral weakness or loss of sensation, coordination intact Musculoskeletal: No joint inflammation, muscle tenderness, FROM Skin: No acute rashes or ulcers Extremities: No clubbing, cyanosis, edema Discharge Data Allergies Allergy/AdvReac Type Severity Reaction Status Date / Time amoxicillin AdvReac Intermediate GI SYMPTOMS Verified 04/03/18 08:22 clavulanic acid AdvReac Intermediate GI SYMPTOMS Verified 04/03/18 08:22 Consultations 03/10/19 02:17 ED Decision to Admit Stat 03/10/19 07:51 Consult Cardiology Routine Ordered Studies 03/10/19 00:24 CT angio chest PE protocol Urgent Hospital Course (1) New onset a-fib: 68 y/o F who denies active medical issues - presenting with acute onset of palpitations accompanied by chest pressure. The pt was in AF on arrival to the ER. She denies a prior history of AF although she does state she had a similar episodes of symptomatic palpitations prior to stopping caffeine intake several years ago. She also states that the prior day she had a glass of wine and had not had any alcohol for a few years prior. Initial labs were unremarkable aside from an elevated D dimer. 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 Clinically and per history, she does not have pneumonia. The pt's initial HR was approximately 105. After a single dose of Metoprolol, her HR came down into the 70s, although she remained in AF. She was offered and subsequently declined electrical cardioversion. 1) New AF - Placed on Metoprolol and Eliquis. Pending cardiology consult and echo. TSH is WNL. As she was having CP with the rapid rate, she may merit a stress test, although not necessarily as an inpatient. She may reconsider cardioversion if she does not spontaneously return to a sinus rhythm in short order. Appreciate input from cardio: New onset a-fib: Patient presented with atrial fibrillation and a controlled ventricular rate. She had some symptoms of palpitations. She also had some symptoms of chest discomfort which were likely related to the arrhythmia and not ischemia. Her primary risk factor for atrial fibrillation is her age. An echocardiogram is pending but she is not appear to have significant valvular disease based on her examination. Thyroid study was normal. Lyme titers are pending, but not a likely etiology for her arrhythmia. I think she will continue to have episodes of atrial fibrillation the frequency and duration of which is yet unknown. Primary concern is her stroke risk. Her chads Vasc score appears to be 2. This is based on her gender and age. I would suggest ongoing systemic anticoagulation. She was started on Eliquis with seems to be a reasonable agent. Xarelto or Pradaxa would be good alternatives as well. Do not believe she requires any specific rate control. Her resting heart rate is relatively low. Her heart rates while in atrial fibrillation seems well controlled. Do not think she requires metoprolol at the time of discharge. Her overall medical regimen may need to be modified pending on the recurrent nature and symptoms associated with additional episodes of atrial fibrillation. (2) Aortic root dilation: She had borderline dilation of the aortic root on her CT scan. This can be followed over time. Overall blood pressures appear well controlled. I do not think she requires a beta-faina based on this incidental finding. She can have a re-evaluation in [address] scan or echocardiography. (3) Chest pain: She did have some sense of chest pressure associated with her arrhythmia. She described this in variable terms on occasion it was a sharp pain. The symptoms appear to last well over an hour without any elevation in her cardiac biomarkers. Do not think this represented ischemia. There is no evidence of ischemia on her presenting EKG. She is otherwise healthy individual was not report symptoms of chest pain with exertion. Do not believe she requires any risk stratification based on this symptom. I would recommend standard cardiac risk factor modification according to published guidelines. 2) Abnormal CT chest - we will not treat for PNM as she does not have related symptoms. She should follow up with her primary MD for the described aneurysm. Patient will be discharged today Total Time Total Time Spent Total Time Spent (In Minutes): 31 Total Time Includes: Examination of the Patient, Discharge Planning, Medication Reconciliation and Communication With Other Providers Discharge Plan Discharge Items Patient Disposition: Home - Self-Care Reason For Visit: PALPITATIONS- NEW AF Discharge Diagnosis: New onset A. fib Discharge Goals: Decrease discomfort Activity: Resume your previous activity Non-emergency contact: Primary Care Provider Call non-emergency contact if: you have any medication questions Follow-up/Referrals: Paulina Ceballos MD [Primary Care Provider] - 03/13/19 11:30 am (Please, follow up with Dr. Ceballos on SaturdayMarch 13 at 11:30 am. *If you need to change this appointment, call the office at [phone].) Diet: Heart Healthy Addtl Provider Instructions: You were admitted with A Rapid heart beat. There is concern over risk of clot formation. Will start on a blood thinner called eliquis twice a day Will have you followup with PCP in 1-2 weeks. Will also followup with cardiology in 2-4 weeks. Prescriptions: New Eliquis 5 mg Tablet 5 mg PO BID Qty: 60 RF: 0 Continued multivitamin Tablet 1 tab PO DAILY RF: 0 omega 7-psy-jya-fish oil [Fish Oil] 1,000 mg (120 mg-180 mg) Capsule 1 cap PO DAILY RF: 0 calcium phosphate-vitamin D3 [Citracal + D3 (calcium phos)] 250 mg calcium- 500 unit Tablet,Chewable 1 tab PO DAILY RF: 0 Cholest Off 450 mg Tablet 1 mg PO DAILY RF: 0 Stand-Alone Forms: [facility] Discharge Orders: Discharge Order (Routine); Ordered 03/10/19 Ordered By: Leonel Rubi Admission Data Admit Date/Time: 03/10/19 02:21 Attending Provider: Leonel Rubi Admit Provider: Stanley Major Primary Care Provider: Paulina Ceballos Other Providers: Stanley Major ; Abhishek Vickers Service: Telemetry Other Interventions: Discharge Summary Assessment (RN) Last Done: 03/10/19 12:58 DC Date/Time DO NOT enter until pt leaves facility: 03/10/19 14:00
== END 2019-03-10 14:00 | disposition home or self-care (01) ==
LOC: 2E 23:30 → ED 23:30 → SUATTDRO 03-10 02:21 → 2E 03-10 02:43